=== PATIENT | male | born 1995 | race Hispanic/Latino ===

== ENCOUNTER 2019-07-14 19:42 | Emergency (ER) | payer SELFPAY ==
[2019-07-14] MEDS ORDERED: SODIUM CHLORIDE 0.9% 1000ML 1,000 ML IV ONE (20:00)
[2019-07-14] MEDS ORDERED: ONDANSETRON HCL 4 MG/2 ML VIAL ONE (20:00)
[2019-07-14 20:05] LABS: BASOPHILS % (AUTO) 0.3 % (0.0-5.0); EOSINOPHILS % (AUTO) 0.7 % (0.0-8.0); HEMATOCRIT 50.1 % (42-54); LYMPHOCYTES % (AUTO) 9.8 % (21.0-51.0); MEAN CORPUSCULAR HGB CONC 35.2 g/dL (32.0-36.0); MEAN CORPUSCULAR VOLUME 85.3 fL (79-99); MONOCYTES % (AUTO) 4.8 % (3.0-13.0); NEUTROPHILS % (AUTO) 84.4 % (40.0-77.0); PLATELET COUNT (AUTO) 209 K/uL (130-400); RED BLOOD CELL COUNT(AUTO) 5.87 MIL/uL (4.50-6.20); RED CELL DISTRIBUTION WIDTH 13.2 % (11.0-15.5); WHITE BLOOD COUNT (AUTO) 11.4 K/uL (4.8-10.8)
[2019-07-14 20:17] LABS: CREATININE 0.8 mg/dL (0.5-1.5); POTASSIUM 3.4 mmol/L (3.5-5.1)
[2019-07-14] MEDS ORDERED: KETOROLAC TROMETHAMINE 30MG/ML ONE (20:20)
[2019-07-14 20:21] LABS: ALBUMIN 4.2 g/dL (3.5-5.0); BILIRUBIN,TOTAL 0.7 mg/dL (0.2-1.0); TOTAL PROTEIN, SERUM 7.6 g/dL (6.0-8.3)
[2019-07-15] MEDS ORDERED: KETOROLAC TROMETHAMINE 30MG/ML ONE (05:27)
[2019-07-15] MEDS ORDERED: SODIUM CHLORIDE 0.9% 1000ML 2,000 ML IV ONE (05:48)
[2019-07-15] MEDS ORDERED: METOCLOPRAMIDE 10 MG/2 ML VIAL ONE (07:30)
[2019-07-15] MEDS ORDERED: DiphenhydrAMINE HCL 50 MG/ML VIAL ONE (07:30)
== END 2019-07-14 22:01 | disposition home or self-care (01) ==
LOC: EDH 19:42
DX: K52.9 Noninfective gastroenteritis and colitis, unspecified (principal); R11.2 Nausea with vomiting, unspecified
CPT/HCPCS: 36415; 80053; 83690; 85025; 96361; 96374; 96375; 99285; J1885; J2405; J7030; J1200; J2765

== ENCOUNTER 2019-10-04 12:43 | Emergency (ER) | payer OTHER ==
[2019-10-04] MEDS ORDERED: DICYCLOMINE HCL 10 MG/ML 2ML AMP IM ONE (12:52)
[2019-10-04 13:03] LABS: BASOPHILS % (AUTO) 0.3 % (0.0-5.0); EOSINOPHILS % (AUTO) 0.4 % (0.0-8.0); HEMATOCRIT 48.8 % (42-54); LYMPHOCYTES % (AUTO) 6.8 % (21.0-51.0); MEAN CORPUSCULAR HEMOGLOBIN 29.3 pg (27.0-33.0); MEAN CORPUSCULAR VOLUME 83.7 fL (79-99); MONOCYTES % (AUTO) 4.8 % (3.0-13.0); NEUTROPHILS % (AUTO) 87.4 % (40.0-77.0); PLATELET COUNT (AUTO) 222 K/uL (130-400); RED BLOOD CELL COUNT(AUTO) 5.83 MIL/uL (4.50-6.20); WHITE BLOOD COUNT (AUTO) 10.9 K/uL (4.8-10.8)
[2019-10-04 13:13] LABS: CREATININE 0.8 mg/dL (0.5-1.5); POTASSIUM 3.7 mmol/L (3.5-5.1)
[2019-10-04 13:18] LABS: ALBUMIN 4.6 g/dL (3.5-5.0); BILIRUBIN,TOTAL 1.2 mg/dL (0.2-1.0); TOTAL PROTEIN, SERUM 7.7 g/dL (6.0-8.3)
== END 2019-10-04 14:04 | disposition home or self-care (01) ==
LOC: EDH 12:43
DX: R11.2 Nausea with vomiting, unspecified (principal); R19.7 Diarrhea, unspecified; F12.10 Cannabis abuse, uncomplicated
CPT/HCPCS: 36415; 80053; 83690; 85025; 87804 ×2; 96372 ×2; 99284; J0500

== ENCOUNTER 2025-08-16 12:39 | Emergency (ER) | payer SELFPAY ==
[~2025-08-16] VITALS: Ht 177.8 cm; Wt 70.8 kg
--- NOTE | 2025-08-16 12:49 | NUR ---
PT JUST NOW PLACED IN MY ED HALLWAY A1
--- NOTE | 2025-08-16 12:56 | ERN ---
ED Note History of Present Illness Stated Complaint: EYE Chief Complaint: Eye Problems Time Seen by MD: 12:44 Dictation: PATIENT IS A 30-YEAR-OL MALE COMPLAINING LEFT EYE PAIN AFTER BEING POKED WITH A TOY LAST NIGHT. HE STATES HIS SON HAS AUTISM AND WE WILL SWING AND AROUND SOMETHING WITH BRACES ON IT, HE WAS STUCK IN THE LEFT EYE LAST NIGHT. HE DOES NOT WEAR CONTACTS OR CORRECTIVE LENSES. HE WENT TO WORK TODAY WAS UNABLE TO KEEP HIS EYE OPEN SECONDARY TO PAIN. NO PRIMARY CARE DOCTOR HE HAS TAKEN NOTHING PRIOR TO ARRIVAL FOR PAIN. Allergies: Coded Allergies: No Known Drug Allergies (Unverified Allergy, Unknown, 08/16/25) Past Medical History Past Medical History: No Pertinent History Surgical History: None RN Note Reviewed/Agreed w/PFSH: Yes Review of System Dictation CONSTITUTIONAL: NEGATIVE EXCEPT FOR HPI HEAD/FACE: NEGATIVE EXCEPT FOR HPI LEFT EYE PAIN EENT: NEGATIVE EXCEPT FOR HPI RESPIRATORY: NEGATIVE EXCEPT FOR HPI GASTROINTESTINAL/ABDOMINAL: NEGATIVE EXCEPT FOR HPI GENITOURINARY: NEGATIVE EXCEPT FOR HPI MUSCULOSKELETAL: NEGATIVE EXCEPT FOR HPI INTEGUMENTARY: NEGATIVE EXCEPT FOR HPI NEUROLOGICAL/PSYCH: NEGATIVE EXCEPT FOR HPI HEMATOLOGIC/LYMPHATIC: NEGATIVE EXCEPT FOR HPI ALL SYSTEMS NEGATIVE, EXCEPT NOTED ABOVE. 13 POINT REVIEW OF SYSTEMS ASSESSED AND ALL NEGATIVE EXCEPT FOR ABOVE. Initial Vital Sign VS Vital Signs Date Time Temp Pulse Resp B/P (MAP) Pulse Ox O2 Delivery O2 Flow Rate FiO2 08/16/25 12:42 97.9 70 16 107/73 99 Room Air 0 Physical Exam Dictation VITAL SIGNS REVIEWED GENERAL APPEARANCE: ALERT, ORIENTED X 3, MODERATE ACUTE DISTRESS, WELL DEVELOPED, NOURISHED. HEAD AND FACE: NON-TRAUMATIC. EYES: PERRL, PINK CONJUNCTIVAS, EYELID NO TRAUMA, ANTERIOR CHAMBER WITH ARCUS SENILIS. EARS: PINNAS INTACT AND NO SIGNS OF TRAUMA OR ERYTHEMA EAR CANALS CLEAR AND NO DISCHARGE TM NO ERYTHEMA NOSE: NO DISCHARGE, NO BLEEDING. OROPHARYNX: MOUTH NORMAL, TONGUE PINK, PHARYNX CLEAR,NO ERYTHEMA, TONSILS NO EXUDATES, NO ABSCESSES NOTED, MUCOUS MEMBRANE MOIST NECK: SUPPLE, NON-TENDER, NO THYROMEGALY, NO MASSES, NO JVD, NO BRUITS BREAST:DEFERRED CHEST:NO TENDERNESS, NO CREPITUS, NO PARADOXICAL MOVEMENT, NO RETRACTIONS LUNGS:CLEAR, WELL-VENTILATED, SYMMETRIC, NO RALES, NO WHEEZING, NO RHONCHI, NO STRIDOR, GOOD BREATH SOUNDS BILATERALLY HEART: REGULAR RATE, REGULAR RHYTHM, NO MURMUR, NO GALLOPS VASCULAR: NO PERIPHERAL EDEMA, ABDOMEN: SOFT, POSITIVE BOWEL SOUNDS, NONDISTENDED, NO GUARDING, NONTENDER, NO REBOUND, NO MASSES NO HEPATOMEGALY, NO SPLENOMEGALY, NO PRYOR'S SIGN, NO HERNIAS. RECTAL: DEFERRED GENITAL: DEFERRED NEUROLOGICAL: NORMAL SPEECH, MOTOR FUNCTION INTACT, SENSORY FUNCTION INTACT MUSCULOSKELETAL: NECK NONTENDER, FULL RANGE OF MOTION, BACK NONTENDER, FULL RANGE OF MOTION, EXTREMITIES: NONTENDER, FULL RANGE OF MOTION SKIN: COLOR PINK, DRY, NO TURGOR, NO RASH, NO LACERATIONS, NO ABRASIONS, NO CONTUSIONS. LYMPHATIC: DEFERRED ED Course ED Course Orders Procedure Category Date Status Time Tetracaine Hcl PHA 08/16/25 Complete (Pontocaine 0.5% 12:52 Fluorescein Sodium PHA 08/16/25 Complete (Qdqco-J-Ofqva At) 13:00 Acetaminophen With PHA 08/16/25 Complete Codeine (Tylenol-Code 13:00 Erythrocin 0.5% Ophth PHA 08/16/25 Complete Oint (Erythrocin 0 12:52 Visual Acuity Test CPOE 08/16/25 Transmitted (Er) 12:52 Current Medications Medications (Trade) Dose Ordered Sig/Ida Route PRN Reason Start Time Stop Time Status Last Admin Dose Admin Acetaminophen/ Codeine Phosphate (TYLenol-coDEINE TAB) 2 tab ONCE ONCE PO 08/16/25 13:00 08/16/25 13:01 DC Erythromycin (Erythrocin 0.5% Ophth Oint) 1 appl ONCE STAT OS 08/16/25 12:52 08/16/25 12:58 DC Fluorescein Sodium (Ucenp-Q-Mwali At) 1 strip ONCE ONCE OP 08/16/25 13:00 08/16/25 13:01 DC Tetracaine HCl (Pontocaine 0.5% Ophth Soln) 2 drop ONCE STAT OP 08/16/25 12:52 08/16/25 12:58 DC Vital Signs Date Time Temp Pulse Resp B/P (MAP) Pulse Ox O2 Delivery O2 Flow Rate FiO2 08/16/25 12:42 97.9 70 16 107/73 99 Room Air 0 1325/VISUAL ACUITY 200/20 LEFT 2020 RIGHT 2030 BILATERAL UNCORRECTED Medical Decision Making MDM MEDICAL DISCHARGE MAKING BASED ON VISUAL ACUITY, PAIN MANAGEMENT AND I EXAM WITH WOOD'S LAMP AND TETRACAINE PATIENT HAS SCLERAL ABRASION ERYTHROMYCIN OPHTHALMIC OINTMENT APPLIED IN ER TYLENOL WITH CODEINE FOR PAIN PATIENT REFERRED TO [facility] TO FOLLOW UP TODAY OR TOMORROW. Procedure Procedure Dictation: 1315/PROCEDURE EXPLAINED TO HE AGREED TO PROCEED TWO DROPS TETRACAINE TO LEFT EYE FLUORESCEIN APPLIED I WAS EXAMINED WITH WOOD'S LAMP TO INCLUDE EVERSION UPPER LID SMALL SCLERAL ABRASION NO FOREIGN BODIES CORNEA INTACT PATIENT TOLERATED WELL DX & DISP Disposition: Discharge Departure Impression: Primary Impression: Abrasion of sclera of left eye Condition: Stable Scripts Ibuprofen (Ibuprofen 800 mg Tab) 800 Mg Tab 800 MG PO Q8H PRN for fever or pain, #30 TAB 0 Refills Prov: BRENTON DAVIES 08/16/25 Erythromycin Base (Erythromycin) 5 Mg/Gram (0.5 %) Oint...g. 1 APPL OP QID, #5 GM 0 Refills apply 1 cm ribbon into the lower conjunctival sac LEFT EYE FOR SEVEN DAYS. Prov: BRENTON DAVIES 08/16/25 Additional Instructions: FOLLOW-UP WITH PRIMARY CARE PROVIDER IN 1 TO 2 DAYS. TAKE MEDICATIONS DIRECTED HERE IN THE EMERGENCY ROOM. OKAY TO CONTINUE HOME MEDICATIONS UNLESS OTHERWISE DISCUSSED DURING YOUR VISIT IN THE EMERGENCY ROOM TODAY. RETURN TO YOUR NEAREST EMERGENCY ROOM IF SYMPTOMS WORSEN OR IF THERE IS NO IMPROVEMENT. CALL 911 IF YOU NEED IMMEDIATE ASSISTANCE. TAKE TYLENOL OR MOTRIN [id number] NEEDED AND IF NO CONTRAINDICATIONS ARE PRESENT. INCREASE ORAL HYDRATION. A WOUND CULTURE OR URINE CULTURE WAS ORDERED HERE IN THE EMERGENCY ROOM DEPARTMENT PLEASE FOLLOW-UP WITH PRIMARY CARE PROVIDER AND ADVISE THEM TO GET REPEAT PORTS FROM OUR FACILITY. IF YOU HAD ANY JA WRAP/SPLINTS THAT WERE APPLIED HERE, PLEASE DO NOT REMOVE THEM UNTIL YOU SEE YOUR PRIMARY CARE OR SPECIALTY. USE OINTMENT TO LEFT EYE DIRECTED AND 4 TIMES A DAY FOR THE NEXT SEVEN DAYS. [phone], CALL [facility] TODAY FOR AN APPOINTMENT. Referrals: SELF,REFERRAL (PCP) Time of Disposition: 13:29 I have reviewed the case, and I agree with, Diagnosis and Plan BRENTON DAVIES Aug 16, 2025 12:56
--- NOTE | 2025-08-16 13:26 | NUR ---
SNELLEN EXAM OS 200/20 OD 20/20 OU 20/20
[2025-08-16] MEDS ORDERED: IBUP-2077 PO (13:30)
[2025-08-16] MEDS ORDERED: ERYT1OIN7 OP (13:30)
[2025-08-16] MEDS: TETRACAINE HCL 0.5% 4 ML OPHTH SOLN OP STA (14:23)
[2025-08-16] MEDS: ERYTHROMYCIN BASE 0.5% OPHTH OINT 1 GM TUBE OS STA (14:23)
[2025-08-16] MEDS: FLUORESCEIN SODIUM 1 STRIP STRIP OP ONE (14:24)
[2025-08-16 14:29] VITALS: BP 108/72; PULSE 52; RESP 20; TEMP 97.8; O2SAT 100
== END 2025-08-16 14:57 | disposition home or self-care (01) ==
LOC: EDH 12:39
DX: S05.02XA Injury of conjunctiva and corneal abrasion without foreign body, left eye, initial encounter (principal); X58.XXXA Exposure to other specified factors, initial encounter; Y93.89 Activity, other specified; Y92.89 Other specified places as the place of occurrence of the external cause; Y99.8 Other external cause status
CPT/HCPCS: 99283